=== PATIENT | female | born 1945 | race Asian ===

== ENCOUNTER → 2016-08-11 | Outpatient (CLI) | payer OTHER, MEDICARE ==
--- NOTE | 2016-08-11 17:12 | US ---
Ultrasound of the Abdomen Limited History: Bloating, right upper quadrant Abdominal pain. Comparison: None. Findings: Gallbladder: No shadowing calculi, wall thickening, or pericholecystic fluid. Common bile duct is 3 m m in diameter which is normal. Liver: Diffusely increased in echogenicity without definite focal lesions and measures 12 cm in lengt h. Renal: Right kidney measures 9 x 5 x 5 cm without hydronephrosis. Pancreas: Homogeneous without peripancreatic fluid. Tail obscured by bowel gas. Aorta: Visualized upper abdominal aorta demonstrates no aneurysm. Impression: 1. No cholelithiasis or biliary ductal dilation. 2. Mild hepatic steatosis without hepatomegaly or definite focal lesions. 3. No right hydronephrosis. 4. Consider additional imaging with CT abdomen and pelvis if clinically indicated. A Call Requested message has been communicated to CHATAMOOSE ALANIS via the [employer] Critical Result system on 08/11/2016 17:10, Message ID [id number].
== END ==
LOC: FIMAGING 15:39
PROVIDERS: ATTEND Internal Medicine
DX: K76.0 Fatty (change of) liver, not elsewhere classified (principal); R10.11 Right upper quadrant pain

== ENCOUNTER → 2016-08-16 | Outpatient (CLI) | payer OTHER, MEDICARE ==
--- NOTE | 2016-08-16 14:44 | DX ---
Upper GI Series With Air Contrast and small bowel follow through. Indication: Abdominal pain. History of positive H pylori test. Technique: Air and barium double-contrast views of the esophagus and upper gastrointestinal tract. Fluoroscopy Time: 3.8 minutes. Cumulative dose: 47.5 mGy Findings: The esophagus is normal caliber, folds and mucosal relief. No Schatzki ring or hiatal mine ia. The esophagogastric junction appears to open during real-time fluoroscopy; however, a 12-mm bariu m tablet transiently stalls just upstream from the esophogastric junction in the standing position wh ile drinking water. No gastroesophageal reflux occurred at any point throughout the exam. Esophageal motility is nearly normal with the exception of minimal residue, which clears with secondary swallows . The hypopharynx and proximal esophagus are normal. No hypertrophy of the cricopharyngeus muscle. The stomach has normal mucosal relief and folds. No ulcer or mass. The duodenal bulb and sweep of the duodenum are normal. A benign 3-cm gas-filled duodenal diverticulum emanates off the mesenteric bord er of the second portion of the duodenum. The duodenal folds are normal. No evidence of duodenitis or mass. Contrast normally flows downstream to the hepatic flexure by 1 hour. The small bowel has normal calib er in folds. No duodenal diverticulosis, stricture, or architectural distortion. The terminal ileum i s normal. Impression: 1. No evidence of esophagitis, gastritis or ulcer. 2. Equivocal low-grade benign narrowing at the esophagogastric junction, resulting in transient delay of downstream migration of the 12-mm barium tablet. No hiatal hernia or Schatzki ring. 3. Benign duodenal diverticulum. 4. Normal small bowel. No evidence of .
== END ==
LOC: FIMAGING 08:17
PROVIDERS: ATTEND Internal Medicine
DX: R10.9 Unspecified abdominal pain (principal); K57.10 Diverticulosis of small intestine without perforation or abscess without bleeding

== ENCOUNTER → 2016-08-25 | Outpatient (CLI) | payer OTHER, MEDICARE ==
[~2016-08-25] MED LIST: IOPAMIDOL (ISOVUE-300) 100 ML BTL IV ONE
--- NOTE | 2016-08-25 15:08 | CT ---
CT Scan of the Abdomen and Pelvis (With Contrast) 1442 hours History: Right-sided abdominal pain. Possible diverticulitis. Technique: Axial computed tomographic images of the abdomen and pelvis were obtained with the unevent ful intravenous administration of 85 mL Isovue-300 contrast. Oral contrast was also administered. Merlyn ges were reviewed in multiple planes. Dose reduction techniques were utilized. Comparison the prior study from December 03, 2007. CT Abdomen and Pelvis Findings: Lung bases: Normal. Liver: Normal. Spleen: Normal. Gallbladder and Bile Ducts: Normal. Pancreas: Normal. Adrenals: Normal. Kidneys: No obstruction or solid masses. Abdominal Aorta: No aneurysm. Pelvic structures: The uterus has a normal contour. No adnexal masses are seen. Bladder: Normal. Appendix: Previous appendectomy. Bowel Loops: Normal contour. No colonic diverticula are seen or abnormal thickening of the colon. Th ere is a simple duodenal diverticulum evident. No bowel obstruction, ascites, or significant retroperitoneal lymphadenopathy. Skeletal system: Vertebral body heights are well-maintained. There are no significant lytic or scler otic osseous lesions. Degenerative disk disease is present associated with the lumbar spine. Impression: 1. No significant abnormality within the abdomen and pelvis. 2. No CT evidence of diverticulitis, abscess or bowel obstruction. These findings were discussed by telephone with Dr. Lian Lawson.
== END ==
LOC: FIMAGING 12:49
PROVIDERS: ATTEND Internal Medicine
DX: R10.11 Right upper quadrant pain (principal)
CPT/HCPCS: 74177; Q9967

== ENCOUNTER → 2016-11-17 | Outpatient (CLI) | payer OTHER, MEDICARE | LOC: BMCIMAGING 14:17 | DX: Z12.31 Encounter for screening mammogram for malignant neoplasm of breast (principal) | CPT/HCPCS: G0202 ==

== ENCOUNTER → 2016-11-22 | Outpatient (CLI) | payer OTHER, MEDICARE | LOC: BMCIMAGING 11:05 | PROVIDERS: ATTEND Internal Medicine | DX: Z13.820 Encounter for screening for osteoporosis (principal); M85.80 Other specified disorders of bone density and structure, unspecified site ==

== ENCOUNTER → 2016-11-30 | Outpatient (CLI) | payer OTHER, MEDICARE | LOC: FIMAGING 14:20 | PROVIDERS: ATTEND Psychiatry & Neurology Neurology | DX: R51 Headache (principal); R94.02 Abnormal brain scan ==

== ENCOUNTER → 2016-12-06 | Outpatient (CLI) | payer OTHER, MEDICARE | LOC: FIMAGING 18:41 | PROVIDERS: ATTEND Physical Medicine & Rehabilitation | DX: M54.2 Cervicalgia (principal); R51 Headache; Z98.1 Arthrodesis status ==

== ENCOUNTER → 2017-12-28 | Outpatient (CLI) | payer OTHER, MEDICARE | LOC: FIMAGING 14:07 | PROVIDERS: ATTEND Internal Medicine | DX: Z12.31 Encounter for screening mammogram for malignant neoplasm of breast (principal); Z80.3 Family history of malignant neoplasm of breast ==

== ENCOUNTER → 2018-02-06 | Outpatient (CLI) | payer OTHER, MEDICARE ==
[~2018-02-06] MED LIST changes: +GADOBUTROL 10 ML VIAL IVP ONE; -IOPAMIDOL (ISOVUE-300) 100 ML BTL IV ONE
== END ==
LOC: FIMAGING 12:55
PROVIDERS: ATTEND Physical Medicine & Rehabilitation
DX: M53.82 Other specified dorsopathies, cervical region (principal); M50.321 Other cervical disc degeneration at C4-C5 level
CPT/HCPCS: 72156; A9585; 82565-PO

== ENCOUNTER 2018-04-04 12:33 | Emergency (ER) | payer OTHER, MEDICARE ==
[2018-04-04] MEDS ORDERED: SKIN ADHESIVE (DERMABOND) 1 EACH TP ONE ×2 (14:16→14:41)
--- NOTE | 2018-04-04 14:21 | EDPHY ---
H & P Smoking Status: Never smoked Time Seen by Provider: 04/04/18 13:10 HPI/ROS: HPI Fall on the trail. Facial injury. 72-year-old female by private vehicle with friend. This patient was walking her dog and a trail. The dog pulled cook, she tripped, she fell forward striking her face on the trail. Neighbors of her responded and brought her to the emergency department. She sustained 2 lacerations from the frames of her glasses impacting her mid forehead just above her nasal bridge. She denies any loss of consciousness. She does complain of a mild headache. She also complains of some stiffness in the posterior aspect of her neck. No loss of sensation or weakness in her extremities. She denies any significant extremity pain. She is not on anticoagulation or antiplatelet agents. She has no other complaint. ROS: Constitutional: No fever, no chills. No weakness. Eyes: No discharge. No changes in vision. ENT: No sore throat. No nasal congestion or rhinorrhea. Respiratory: No cough. No shortness of breath. Cardiac: No chest pain, no palpitations. Gastrointestinal: No abdominal pain, no vomiting, no diarrhea. Genitourinary: No hematuria. No dysuria or increased frequency with urination. Musculoskeletal: No back pain. As above. Skin: No rashes. Neurological: As above. No focal weakness or altered sensation. Past medical history: Chronic cervical arthritis and pain as well as joint pain and arthritis. Social history: Nonsmoker. Here with neighbor initially. Now . No alcohol. Physical Exam: General Appearance: Alert, no distress. This patient is responding to questions appropriately and in full sentences. This patient appears well- hydrated and well-nourished. Head: Normocephalic atraumatic except for to linear, clean facial lacerations measuring approximately 2 cm where the nose support of her glasses impacted her mid forehead just above her nasal bridge. The 1 on the left side is superficial unlikely does not require sutures. The 1 on the right side is through the dermis, non gaping and will require skin adhesive or sutures. Face: Facial bones are stable on palpation. Eyes: Pupils equal and round and reactive to light, no pallor or injection. No lid erythema or edema. ENT, Mouth: Mucous membranes moist. Dentition is intact. No malocclusion of the jaw. No tongue lacerations or abrasions. Pharynx is clear. The bilateral nasal canals are clear. No septal hematoma. Respiratory: There are no retractions, lungs are clear to auscultation with good air movement bilaterally. Chest wall is stable to AP and lateral palpation. Cardiovascular: Regular rate and rhythm. No murmur. Gastrointestinal: Abdomen is soft and nontender, no masses, bowel sounds normal. Neurological: Motor sensory function is intact. Cranial nerves are normal. Cerebellar function intact. Skin: Warm and dry, no rashes. As above. She also has contusions to the anterior aspect of both knees. Musculoskeletal: Neck is supple with vague bilateral posterior paraspinal tenderness on palpation from C2 through C6. The trachea is midline. No midline cervical, thoracic, lumbar or sacral tenderness on palpation. No flank tenderness on palpation. Extremities are symmetrical, full range of motion. All joints in the bilateral upper and bilateral lower extremities range without pain or impingement. No tenderness on palpation of the long bones in the bilateral upper and bilateral lower extremities. Psychiatric: No agitation. No depression. Database: EKG: Imaging: CT scan of cervical spine: Degenerative changes only. Negative for fracture, subluxation, dislocation. Results were discussed with staff radiologist Dr. Edu Cardenas. CT scan of head without contrast. No intracranial pathology. No fracture. Her pituitary does seem slightly larger than it did on a previous MR I. Reading radiologist Dr. Edu Cardenas recommends a pituitary protocol MRI in the future. Procedures: Procedure: Laceration repair. Verbal consent was obtained from the patient. The 2 cm partial-thickness non gaping laceration on the left mid forehead above the nasal bridge was anesthetized in the usual fashion. The wound was irrigated, draped and explored to its base with a gloved finger. There were no deep structures involved. No foreign body was identified. The wound was repaired with skin adhesive. The wound repair was tolerated well and there were no complications. The procedure was performed by myself. Please see wound care note for repair of laceration on right side of forehead by physician community assistant Fidel Vu. Emergency department course: Triage vital signs reviewed. After my evaluation she was sent for CT imaging as above. She consents to CT imaging. 3:00 p.m., the patient was re-evaluated, resting comfortably at this time. She has been up and ambulatory without difficulty. Repeat neurologic Assessment is nonfocal. Results of her CT scan of her head and cervical spine were discussed with her and her . She feels comfortable going home. Wound care was discussed with her. Follow-up and return to emergency department precautions reviewed. All of her questions were answered. She was discharged in good condition with her . Differential Diagnosis: The differential diagnosis on this patient includes but is not limited to mechanical fall from ground, facial lacerations. Facial fracture, traumatic brain injury, traumatic spinal injury, unlikely. This represents a partial list of diagnoses considered. These considerations are based on history, physical exam, past history, reassessment and diagnostic testing. (Kiran Borrero) Constitutional: Initial Vital Signs Temperature (C) 36.9 C 04/04/18 12:47 Heart Rate 77 04/04/18 12:47 Respiratory Rate 18 04/04/18 12:47 Blood Pressure 124/78 H 04/04/18 12:47 O2 Sat (%) 96 04/04/18 12:47 O2 Delivery Mode Room Air Allergies/Adverse Reactions: No Known Allergies Allergy (Verified 04/04/18 12:46) Home Medications: Medication Instructions Recorded Amlodipine Besylate/Benazepril 1 each PO DAILY 01/01/11 [Lotrel 5-40 mg] Aspirin [Aspirin 81mg] 81 mg PO DAILY 01/01/11 CELECOXIB [Celebrex] 100 mg PO 01/01/11 Loratadine [Claritin] 10 mg PO 01/01/11 Metaxalone [Skelaxin] 400 mg PO 01/01/11 Montelukast Sodium [Singulair] 10 mg PO DAILY@1800 01/01/11 RISEDRONATE SODIUM [Actonel] 150 mg PO 01/01/11 SIMVASTATIN [Zocor] 20 mg PO 01/01/11 Zolpidem Tartrate [Ambien] 01/01/11 Medical Decision Making Procedures: My involvement the care this patient is solely for procedure. Please see the note of the attending physician for all other aspects of care. PROCEDURE: Laceration repair Consent: Verbal Location: Right forehead Length of repair: 2 cm Complexity: Simple Layer involvement: Single Anesthesia: Local per 1% lidocaine with epinephrine, 4 mL Irrigation: Extensive Debridement: None Procedure description: Following good anesthesia, the wound was copiously irrigated. Wound bed was explored with a sterile glove, and there is no foreign body noted. No injury to the eyelid or tarsal plate. No new to the canthus. No exposure of the underlying frontalis muscle. Wound borders were approximated well with good hemostasis. Tolerated well without complication. Suture/Staple material: 6-0 Prolene, 3 simple ruptured sutures Wound care: Routine as discussed Suture/Staple removal: 5-7 Days (Fidel Vu) Departure - Departure Disposition: Home, Routine, Self-Care Clinical Impression: Fall from ground level, Facial laceration, Head injury Condition: Good Instructions: Head Injury (ED), Skin Adhesive Care (ED), Facial Laceration (ED) Additional Instructions: Read and follow provided instructions. Sutures in facial laceration are to be removed in 5-7 days. This can be done here at the emergency department or by her primary care physician. Follow-up with your primary care physician in 1-2 days for re-evaluation. Ibuprofen dosin mg every 6 hours with meals for the next 3 days only. Take only as needed for pain. Return to the emergency department for worsening headache, neck pain, loss of sensation or weakness in your extremities, vomiting, confusion or other serious concerns. Referrals: Sirisha Lawson MD [Primary Care Provider] - As per Instructions
[2018-04-04 15:22] VITALS: BP 131/78
== END 2018-04-04 15:22 | disposition home or self-care (01) ==
PROC: 0HQ1XZZ Repair Face Skin, External Approach (ICD-10-PCS; principal; 2018-04-04)
DX: S01.81XA Laceration without foreign body of other part of head, initial encounter (principal); W01.198A Fall on same level from slipping, tripping and stumbling with subsequent striking against other object, initial encounter; Y93.K1 Activity, walking an animal; Y92.828 Other wilderness area as the place of occurrence of the external cause; Y99.9 Unspecified external cause status

== ENCOUNTER → 2018-11-23 | Outpatient (CLI) | payer OTHER, MEDICARE | LOC: BMCIMAGING 10:38 | PROVIDERS: ATTEND Internal Medicine | DX: Z13.820 Encounter for screening for osteoporosis (principal); M85.89 Other specified disorders of bone density and structure, multiple sites; Z82.62 Family history of osteoporosis ==

== ENCOUNTER → 2018-12-29 | Outpatient (CLI) | payer OTHER, MEDICARE | LOC: BMCIMAGING 08:45 ==